=== PATIENT | male | born 1945 | race Caucasian/White ===

== ENCOUNTER 2018-02-09 13:12 | Outpatient (REF) | payer MEDICARE, MEDICAID, SELFPAY ==
[2018-02-09 22:22] LABS: Cholesterol 266 mg/dL (50-200); HDL Cholesterol 82 mg/dL (40-60); LDL CHOLESTEROL 147 mg/dL (<100); Triglyceride 147 mg/dL (30-150)
[2018-02-12 11:52] LABS: Hepatitis C Ab w Rflx HCV PCR Negative (NEGAT)
== END 2018-02-09 13:32 ==
LOC: NCHCN 13:12
PROVIDERS: PCP Internal Medicine; Visit Provider Internal Medicine
DX: I10 Essential (primary) hypertension (principal); Z11.59 Encounter for screening for other viral diseases; Z13.6 Encounter for screening for cardiovascular disorders
CPT/HCPCS: 80061; 83721; 86803

== ENCOUNTER 2018-07-08 12:25 | Outpatient (REF) | payer MEDICARE, MEDICAID, SELFPAY ==
[2018-07-08 22:43] LABS: Glucose 94 mg/dL (70-100); TSH (W/Ref FT4) 1.32 uIU/mL (0.358-3.74); Vitamin B12 344 pg/mL (193-986)
[2018-07-08 23:14] LABS: Hemoglobin A1C 5.6 % (4.5-6.2)
[2018-07-09 06:32] LABS: Vitamin D 25 Total 32.1 ng/ml (30-100)
== END 2018-07-08 12:45 ==
LOC: NCHCN 12:25
PROVIDERS: PCP Internal Medicine; Visit Provider Nurse Practitioner Family
DX: R73.9 Hyperglycemia, unspecified (principal); H05.20 Unspecified exophthalmos; G47.20 Circadian rhythm sleep disorder, unspecified type; F98.8 Other specified behavioral and emotional disorders with onset usually occurring in childhood and adolescence; Z68.27 Body mass index [BMI] 27.0-27.9, adult
CPT/HCPCS: 82306; 82947; 82607; 83036; 84443

== ENCOUNTER 2019-02-12 18:56 | Outpatient (REF) | payer MEDICARE, MEDICAID, SELFPAY ==
[2019-02-12 21:30] LABS: BUN 14 mg/dL (7-18); CREATININE 1.01 mg/dL (0.70-1.30); Calcium 9.2 mg/dL (8.5-10.1); Chloride 101 mmol/L (98-107); Glucose 85 mg/dL (74-106); Potassium 4.4 mmol/L (3.5-5.1); Sodium 140 mmol/L (136-145)
[2019-02-12 21:31] LABS: Vitamin B12 > 2000 pg/mL (193-986)
[2019-02-12 21:40] LABS: Uric Acid 3.8 mg/dL (3.5-7.2)
== END 2019-02-12 19:16 ==
LOC: NCHCN 18:56
PROVIDERS: PCP Nurse Practitioner Family; Visit Provider Family Medicine
DX: E53.8 Deficiency of other specified B group vitamins (principal); I10 Essential (primary) hypertension; M10.9 Gout, unspecified
CPT/HCPCS: 80048; 82607; 84550

== ENCOUNTER 2019-07-27 16:59 | Outpatient (REF) | payer MEDICARE, MEDICAID, SELFPAY ==
[2019-07-27 21:08] LABS: BUN 20 mg/dL (7-18); CREATININE 1.06 mg/dL (0.70-1.30); Calcium 8.9 mg/dL (8.5-10.1); Chloride 103 mmol/L (98-107); Glucose 108 mg/dL (74-106); Potassium 3.9 mmol/L (3.5-5.1); Sodium 138 mmol/L (136-145)
== END 2019-07-27 17:19 ==
LOC: NCHCN 16:59
PROVIDERS: PCP Nurse Practitioner Family; Visit Provider Nurse Practitioner Family
DX: I10 Essential (primary) hypertension (principal)
CPT/HCPCS: 80048

== ENCOUNTER 2021-02-05 16:07 | Outpatient (REF) | payer MEDICARE, MEDICAID, SELFPAY ==
[2021-02-05 18:03] LABS: ALT 60 U/L (16-63); AST 49 U/L (15-37); Albumin 3.7 g/dL (3.4-5.0); Alkaline Phosphatase 107 U/L (46-116); Anion Gap 6.9 mmol/L (3-11); BUN 16 mg/dL (7-18); Bilirubin, Total 0.7 mg/dL (0.2-1.0); CO2 29.1 mmol/L (21.0-32.0); Calcium 9.2 mg/dL (8.5-10.1); Chloride 100 mmol/L (98-107); Glucose 128 mg/dL (74-106); Potassium 4.2 mmol/L (3.5-5.1); Sodium 136 mmol/L (136-145); Total Protein 7.2 g/dL (6.4-8.2)
== END 2021-02-05 16:08 | disposition home or self-care (01) ==
LOC: NCHCN 16:07
PROVIDERS: PCP Nurse Practitioner Family; Visit Provider Nurse Practitioner Family
DX: M54.59 Other low back pain (principal)
CPT/HCPCS: 80053; 85025

== ENCOUNTER 2021-02-07 18:54 | Outpatient (REF) | payer MEDICARE, MEDICAID, SELFPAY ==
[2021-02-07 14:44] LABS: Abs Immature Grans 0.01 10^3/uL (0.0-0.06); Absolute Basophil Count 0.02 10^3/uL (0.0-0.2); Absolute Eosinophil Count 0.01 10^3/uL (0.0-0.7); Absolute Lymphocyte Count 0.66 10^3/uL (1.2-3.4); Absolute Monocyte Count 0.49 10^3/uL (0.1-0.8); Absolute Neutrophil Count 2.06 10^3/uL (1.2-6.7); Basophils % 0.6; Eosinophils % 0.3; HCT 41.8 % (40.0-50.0); HGB 13.7 g/dL (13.5-17.5); Immature Grans % 0.3; Lymphocytes % 20.3; MCH 32.2 pg (27.0-33.0); MCHC 32.8 % (32.0-36.0); MCV 98.1 fL (80-95); MPV 10.9 fL (8.0-11.0); Monocytes % 15.1; Neutrophils % 63.4; Nucleated RBC 0 %; Platelet Count 252 10^3/uL (130-400); RBC 4.26 10^6/uL (4.36-5.78); RDW 14.6 % (11.8-14.1); RDW-SD 53.1 fL; WBC 3.25 10^3/uL (4.4-10.8)
[2021-02-07 15:06] LABS: Hemoglobin A1C 5.8 % (<5.7)
[2021-02-07 15:25] LABS: ALT 55 U/L (16-63); AST 31 U/L (15-37); Albumin 3.6 g/dL (3.4-5.0); Alkaline Phosphatase 98 U/L (46-116); Anion Gap 8.3 mmol/L (3-11); BUN 17 mg/dL (7-18); Bilirubin, Total 0.6 mg/dL (0.2-1.0); CO2 27.7 mmol/L (21.0-32.0); Calcium 8.9 mg/dL (8.5-10.1); Chloride 103 mmol/L (98-107); Glucose 108 mg/dL (74-106); Potassium 4.3 mmol/L (3.5-5.1); Sodium 139 mmol/L (136-145); Total Protein 6.6 g/dL (6.4-8.2)
== END 2021-02-07 18:55 | disposition home or self-care (01) ==
LOC: NCHCN 18:54
PROVIDERS: PCP Nurse Practitioner Family; Visit Provider Nurse Practitioner Family
DX: R73.9 Hyperglycemia, unspecified (principal); R74.8 Abnormal levels of other serum enzymes; M54.59 Other low back pain
CPT/HCPCS: 80053; 83036; 85025

== ENCOUNTER 2021-04-17 15:13 | Outpatient (REF) | payer MEDICARE, MEDICAID, SELFPAY ==
[2021-04-17 16:41] LABS: Abs Immature Grans 0.01 10^3/uL (0.0-0.06); Absolute Basophil Count 0.04 10^3/uL (0.0-0.2); Absolute Eosinophil Count 0.04 10^3/uL (0.0-0.7); Absolute Lymphocyte Count 0.94 10^3/uL (1.2-3.4); Absolute Monocyte Count 0.66 10^3/uL (0.1-0.8); Absolute Neutrophil Count 3.08 10^3/uL (1.2-6.7); Basophils % 0.8; Eosinophils % 0.8; HCT 39.6 % (40.0-50.0); HGB 13.2 g/dL (13.5-17.5); Immature Grans % 0.2; Lymphocytes % 19.7; MCHC 33.3 % (32.0-36.0); MCV 95.9 fL (80-95); Monocytes % 13.8; Neutrophils % 64.7; Nucleated RBC 0 %; Platelet Count 225 10^3/uL (130-400); RBC 4.13 10^6/uL (4.36-5.78); RDW 12.6 % (11.8-14.1); RDW-SD 44.7 fL; WBC 4.77 10^3/uL (4.4-10.8)
== END 2021-04-17 15:14 | disposition home or self-care (01) ==
LOC: NCHCN 15:13
PROVIDERS: PCP Nurse Practitioner Family; Visit Provider Family Medicine
DX: R73.03 Prediabetes (principal); R68.89 Other general symptoms and signs
CPT/HCPCS: 83036; 85025

== ENCOUNTER 2022-02-05 10:36 | Outpatient (REF) | payer MEDICARE, MEDICAID, SELFPAY ==
--- OUTSIDE RECORDS SUMMARY | 2022-02-05 10:39 | XMS_ITS | Continuity of Care Document ---
:1945 Author Organization [facility] Address [address] [place] [address] Care Team Providers Name Role Phone Chichi Patricia Primary Care Physician [phone] Encounter [facility] Date(s): 11/20/21 - 11/20/[address] [address] Discharge Disposition: Home or Self Care Attending Physician: Jenny Taylor MD Admitting Physician: Jenny Taylor MD Referring Physician: Jenny Taylor MD Allergies, Adverse Reactions, Alerts Substance Reaction Severity Status statins Unknown Active Immunizations Given and Recorded Vaccine Date Status Refusal Reason SARS-CoV-2 (COVID-19) mRNA-1273 vaccine 04/17/20 Recorded SARS-CoV-2 (COVID-19) mRNA-1273 vaccine 03/20/20 Recorded Social History Social History Type Response Sex Male Patient Care team information PersonnelName: Chichi Patricia Address: Address: [facility] [address] [place] [address]-
--- OUTSIDE RECORDS SUMMARY | 2022-02-05 10:39 | XMS_ITS | CCD ---
:1945 Author Care Team Providers Name Role Phone LAKEISHA PEREZ Attending Physician Unavailable LAKEISHA PEREZ Rounding (Secondary) Physician Unavailab le Vital Signs Unknown or Not Available. Allergies Allergy Code Allergy Type Reaction Status No Known Environmental 0 No known environmental Active Allergies allergies No Known Food Allergies 0 No known food allergies Active No Known Drug Allergies 0 No known drug allergies Active Procedures Unknown or Not Available. History of Immunizations Unknown or Not Available. Problems Unknown or Not Available. Results Unknown or Not Available. Active Medications Unknown or Not Available. Medications Administered During Visit Unknown or Not Available. Encounters Encounter Diagnosis Diagnosis Code Start Date Metatarsalgia, right foot [id number] 09/12/2021 Social History Smoking Status Code Start Date End Date Unknown if ever smoked [id number] Patient Decision Aids Unknown or Not Available. Discharge Instructions You were admitted to [facility] on 09/12/2021 15:27 with a principal diagnosis of Metatarsalgia, right foot You were discharged from [facility] on 09/12/2021 00:00 Should you have any questions prior to d ischarge, please contact a member of your healthcare team. If you have left the ho spital and have any questions, please contact your primary care physician. Chief Complaint and Reason For Visit Unknown or Not Available. Function Status Unknown or Not Available. Plan of Care Unknown or Not Available. Referral/Transition of Care Unknown or Not Available.
--- OUTSIDE RECORDS SUMMARY | 2022-02-05 10:39 | XMS_ITS | Continuity of Care Document ---
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/21 Osteoarthritis of knees, bilateral (Discharge Diagnosis) - 12/07/21 Discharge Disposition: Home or Self Care Attending Physician: Fang Lee [employer], Allergies, Adverse Reactions, Alerts Substance Reaction Severity Status statins Unknown Unknown Active Functional Status 12/07/21 Recent Travel History No recent travel Other exposure to Infectious Disease None Medications allopurinol 300 mg oral tablet 1 Unknown, 0 Refill(s) Start Date: 12/07/21 Status: Orderedcolchicine 0.6 mg oral tablet 1 Unknown, 0 Refill(s) Start Date: 12/07/21 Status: Ordereddiclofenac 1% topical gel 0 Refill(s) Start Date: 12/07/21 Status: Orderedlisinopril 20 mg oral tablet 0 Refill(s) Start Date: 12/07/21 Status: OrderedoxyCODONE 5 mg oral tablet 0 Refill(s) Start Date: 12/07/21 Status: OrderedVitamin B12 1000 mcg oral tablet 0 Refill(s) Start Date: 12/07/21 Status: OrderedVitamin D3 50 mcg (2000 intl units) oral tablet, chewable 0 Refill(s) Start Date: 12/07/21 Status: Orderedzolpidem 12.5 mg oral tablet, extended release 1 Unknown, 0 Refill(s) Start Date: 12/07/21 Status: Ordered Procedures Procedure Date Related Diagnosis Body Site Status Foot reconstruction 08/2019 Complete d [facility] - Carpometacarpal joint 05/05/14 Completed arthroplasty of thumb Wrist repair 2010 Completed Right Hip replacement 1999 Comple quique Operative procedure on Right toe 1985 Completed Operative procedure on Left toe 1975 Completed Cubital tunnel release Compl eted Vital Signs Most recent to oldest [Reference Range]: 1 Peripheral Pulse Rate [60-100 bpm] 67 bpm (12/07/21 10:43 AM) Blood Pressure [90-140/60-90 mmHg] 142/78 mmHg *HI* (12/07/21 10:43 AM) Weight 76.48 kg (12/07/21 10:43 AM) Weight Measured (lbs) 168.609 lb (12/07/21 10:43 AM) Height 172.72 cm (12/07/21 10:43 AM) Height/Length Measured (inches) 68 inch (12/07/21 10:43 AM) BSA Measured 1.92 m2 (12/07/21 10:43 AM) Body Mass Index 25.64 kg/m2 (12/07/21 10:43 AM) Social History Social History Type Response Tobacco Never tobacco user Tobacco U se:. Sex Hospital Discharge Instructions Follow Up Care11/22/2021 11:49:31With:Return to this practice Address: When[facility]
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
[2022-02-05 14:40] LABS: ALT 26 U/L (16-63); AST 30 U/L (15-37); Albumin 3.1 g/dL (3.4-5.0); Alkaline Phosphatase 144 U/L (46-116); Anion Gap 6.3 mmol/L (3-11); BUN 21 mg/dL (7-18); Bilirubin, Total 0.3 mg/dL (0.2-1.0); CO2 29.7 mmol/L (21.0-32.0); CREATININE 1.1 mg/dL (0.70-1.30); Calcium 9.4 mg/dL (8.5-10.1); Chloride 101 mmol/L (98-107); Estimated GFR 68.71 (mL/min/1.73m2); Glucose 124 mg/dL (74-106); Potassium 4.5 mmol/L (3.5-5.1); Sodium 137 mmol/L (136-145); Total Protein 7.3 g/dL (6.4-8.2); Uric Acid 3.5 mg/dL (3.5-7.2)
[2022-02-05 14:43] LABS: Hemoglobin A1C 5.6 % (<5.7)
[2022-02-05 14:51] LABS: Calculated LDL 100 mg/dL (<100); Cholesterol 193 mg/dL (<200); HDL Cholesterol 79 mg/dL (40-60); Triglyceride 73 mg/dL (<150)
[2022-02-05 15:00] LABS: Vitamin D 25 Total 67.5 ng/mL (30-100)
== END 2022-02-05 10:37 | disposition home or self-care (01) ==
LOC: NCHCN 10:36
PROVIDERS: PCP Nurse Practitioner Family; Visit Provider Family Medicine
DX: I10 Essential (primary) hypertension (principal); R73.03 Prediabetes; E55.9 Vitamin D deficiency, unspecified; M10.9 Gout, unspecified; Z13.220 Encounter for screening for lipoid disorders
CPT/HCPCS: 80053; 80061; 82306; 83036; 84550

== ENCOUNTER 2022-06-25 22:56 | Outpatient (REF) | payer MEDICARE, SELFPAY ==
[2022-06-25 20:59] LABS: ALT 29 U/L (16-63); AST 23 U/L (15-37); Albumin 3.7 g/dL (3.4-5.0); Alkaline Phosphatase 79 U/L (46-116); Anion Gap 5.7 mmol/L (3-11); BUN 17 mg/dL (7-18); Bilirubin, Total 0.4 mg/dL (0.2-1.0); CO2 25.3 mmol/L (21.0-32.0); CREATININE 0.8 mg/dL (0.70-1.30); Calcium 9.4 mg/dL (8.5-10.1); Calculated LDL 156 mg/dL (<100); Chloride 105 mmol/L (98-107); Cholesterol 276 mg/dL (<200); Estimated GFR 90.02 (mL/min/1.73m2); Glucose 103 mg/dL (74-106); HDL Cholesterol 111 mg/dL (40-60); Potassium 3.8 mmol/L (3.5-5.1); Sodium 136 mmol/L (136-145); Total Protein 7.2 g/dL (6.4-8.2); Triglyceride 49 mg/dL (<150)
[2022-06-25 21:05] LABS: Hemoglobin A1C 6.2 % (<5.7)
[2022-06-25 21:19] LABS: Uric Acid 4.5 mg/dL (3.5-7.2)
== END 2022-06-25 22:57 | disposition home or self-care (01) ==
LOC: NCHCN 22:56
PROVIDERS: PCP Nurse Practitioner Family; Visit Provider Family Medicine
DX: R73.03 Prediabetes (principal); E78.5 Hyperlipidemia, unspecified; M10.9 Gout, unspecified
CPT/HCPCS: 80053; 80061; 83036; 84550

== ENCOUNTER 2022-09-19 18:44 | Outpatient (REF) | payer MEDICARE, SELFPAY ==
[2022-09-19 21:03] LABS: Hemoglobin A1C 5.7 % (<5.7)
[2022-09-19 21:08] LABS: ALT 27 U/L (16-63); AST 23 U/L (15-37); Albumin 3.6 g/dL (3.4-5.0); Alkaline Phosphatase 85 U/L (46-116); BUN 15 mg/dL (7-18); Bilirubin, Total 0.6 mg/dL (0.2-1.0); CREATININE 0.8 mg/dL (0.70-1.30); Calcium 9.3 mg/dL (8.5-10.1); Calculated LDL 164 mg/dL (<100); Chloride 102 mmol/L (98-107); Cholesterol 264 mg/dL (<200); Estimated GFR 90.02 (mL/min/1.73m2); Glucose 96 mg/dL (74-106); HDL Cholesterol 95 mg/dL (40-60); Potassium 3.7 mmol/L (3.5-5.1); Sodium 138 mmol/L (136-145); Total Protein 6.8 g/dL (6.4-8.2); Triglyceride 27 mg/dL (<150)
[2022-09-19 21:21] LABS: Uric Acid 4.4 mg/dL (3.5-7.2)
== END 2022-09-19 18:45 | disposition home or self-care (01) ==
LOC: NCHCN 18:44
PROVIDERS: PCP Nurse Practitioner Family; Visit Provider Family Medicine
DX: R73.03 Prediabetes (principal); E78.5 Hyperlipidemia, unspecified; M10.9 Gout, unspecified
CPT/HCPCS: 80053; 80061; 83036; 84550

== ENCOUNTER 2022-11-15 15:55 | Outpatient (REF) | payer MEDICARE, SELFPAY ==
[2022-11-15 20:48] LABS: HCT 33.6 % (40.0-50.0); HGB 11.2 g/dL (13.5-17.5); MCH 31.3 pg (27.0-33.0); MCHC 33.3 % (32.0-36.0); MCV 94 fL (80-95); MPV 12.6 fL (8.0-11.0); Platelet Count 215 10^3/uL (130-400); RBC 3.58 10^6/uL (4.36-5.78); RDW 13.1 % (11.8-14.1); WBC 2.99 10^3/uL (4.4-10.8)
[2022-11-15 21:08] LABS: Anion Gap 9.1 mmol/L (3-11); BUN 15 mg/dL (7-18); CO2 24.9 mmol/L (21.0-32.0); CREATININE 0.9 mg/dL (0.70-1.30); Calcium 9.7 mg/dL (8.5-10.1); Calculated LDL 110 mg/dL (<100); Chloride 100 mmol/L (98-107); Cholesterol 213 mg/dL (<200); Estimated GFR 86.88 (mL/min/1.73m2); Glucose 112 mg/dL (74-106); HDL Cholesterol 97 mg/dL (40-60); Potassium 4.3 mmol/L (3.5-5.1); Sodium 134 mmol/L (136-145); Triglyceride 31 mg/dL (<150)
[2022-11-15 22:24] LABS: Uric Acid 3.8 mg/dL (3.5-7.2)
== END 2022-11-15 15:56 | disposition home or self-care (01) ==
LOC: NCHCN 15:55
PROVIDERS: PCP Nurse Practitioner Family; Visit Provider Family Medicine
DX: E78.5 Hyperlipidemia, unspecified (principal); M10.9 Gout, unspecified; I10 Essential (primary) hypertension; R68.89 Other general symptoms and signs
CPT/HCPCS: 80048; 80061; 85027; 84550

== ENCOUNTER 2023-01-09 17:33 | Outpatient (REF) | payer MEDICARE, SELFPAY ==
[2023-01-09 21:16] LABS: Hemoglobin A1C 5.2 % (<5.7)
[2023-01-09 21:19] LABS: Iron 27 ug/dL (65-175); Total Iron Binding Capacity 274 ug/dL (250-450); Transferrin Sat 10 % (20-55)
== END 2023-01-09 17:34 | disposition home or self-care (01) ==
LOC: NCHCN 17:33
PROVIDERS: PCP Nurse Practitioner Family; Visit Provider Family Medicine
DX: D64.9 Anemia, unspecified (principal); R73.03 Prediabetes
CPT/HCPCS: 83036; 83540; 83550

== ENCOUNTER 2023-04-01 16:00 | Outpatient (REF) | payer OTHER, SELFPAY ==
[2023-04-01 21:17] LABS: HCT 34.8 % (40.0-50.0); HGB 11.5 g/dL (13.5-17.5); MCV 88 fL (80-95); MPV 12.4 fL (8.0-11.0); Platelet Count 194 10^3/uL (130-400); RBC 3.96 10^6/uL (4.36-5.78); RDW 14.4 % (11.8-14.1); RDW-SD 46.5 fL; WBC 4.67 10^3/uL (4.4-10.8)
[2023-04-01 21:44] LABS: Calculated LDL 100 mg/dL (<100); Cholesterol 216 mg/dL (<200); Folate 16.8 ng/mL (8.6-20.0); HDL Cholesterol 107 mg/dL (40-60); Triglyceride 45 mg/dL (<150)
[2023-04-01 21:48] LABS: Iron 61 ug/dL (65-175); Total Iron Binding Capacity 414 ug/dL (250-450); Transferrin Sat 15 % (20-55)
[2023-04-01 21:58] LABS: Uric Acid 4.1 mg/dL (3.5-7.2)
== END 2023-04-01 16:01 | disposition home or self-care (01) ==
LOC: NCHCN 16:00
PROVIDERS: PCP Nurse Practitioner Family; Visit Provider Family Medicine
DX: D64.9 Anemia, unspecified (principal); E78.5 Hyperlipidemia, unspecified; R73.03 Prediabetes; M10.9 Gout, unspecified
CPT/HCPCS: 80061; 85027; 82746; 83036; 83540; 83550; 84550

== ENCOUNTER 2023-06-26 16:22 | Outpatient (REF) | payer OTHER, MEDICAID, SELFPAY ==
[2023-06-26 21:34] LABS: HCT 39.8 % (40.0-50.0); HGB 13.7 g/dL (13.5-17.5); MCH 31.5 pg (27.0-33.0); MCHC 34.4 % (32.0-36.0); MCV 92 fL (80-95); MPV 12.3 fL (8.0-11.0); Platelet Count 192 10^3/uL (130-400); RBC 4.35 10^6/uL (4.36-5.78); RDW 14.6 % (11.8-14.1); RDW-SD 49.4 fL; WBC 3.86 10^3/uL (4.4-10.8)
[2023-06-26 21:47] LABS: Iron 111 ug/dL (65-175); Total Iron Binding Capacity 276 ug/dL (250-450); Transferrin Sat 40 % (20-55)
[2023-06-26 21:49] LABS: ALT 25 U/L (16-63); AST 20 U/L (15-37); Alkaline Phosphatase 100 U/L (46-116); Anion Gap 9.2 mmol/L (3-11); BUN 18 mg/dL (7-18); Bilirubin, Total 0.4 mg/dL (0.2-1.0); CO2 26.8 mmol/L (21.0-32.0); CREATININE 0.8 mg/dL (0.70-1.30); Calcium 9.1 mg/dL (8.5-10.1); Chloride 103 mmol/L (98-107); Estimated GFR 89.47 (mL/min/1.73m2); Glucose 94 mg/dL (74-106); Potassium 3.9 mmol/L (3.5-5.1); Sodium 139 mmol/L (136-145); Total Protein 7.4 g/dL (6.4-8.2); Uric Acid 5.4 mg/dL (3.5-7.2)
[2023-06-26 22:08] LABS: Hemoglobin A1C 5.9 % (<5.7)
[2023-06-26 22:17] LABS: Calculated LDL 112 mg/dL (<100); Cholesterol 224 mg/dL (<200); Ferritin 69 ng/mL (26-388); HDL Cholesterol 103 mg/dL (40-60); Triglyceride 49 mg/dL (<150)
== END 2023-06-26 16:23 | disposition home or self-care (01) ==
LOC: NCHCN 16:22
PROVIDERS: PCP Nurse Practitioner Family; Visit Provider Family Medicine
DX: E78.5 Hyperlipidemia, unspecified (principal); D50.9 Iron deficiency anemia, unspecified; R73.03 Prediabetes
CPT/HCPCS: 80053; 80061; 85027; 82728; 83036; 83540; 83550; 84550

== ENCOUNTER 2023-11-14 15:47 | Outpatient (REF) | payer OTHER, MEDICAID, SELFPAY ==
[2023-11-14 21:27] LABS: HCT 35.3 % (40.0-50.0); HGB 11.8 g/dL (13.5-17.5); MCH 32.2 pg (27.0-33.0); MCHC 33.4 % (32.0-36.0); MCV 96 fL (80-95); MPV 11.2 fL (8.0-11.0); Platelet Count 181 10^3/uL (130-400); RBC 3.67 10^6/uL (4.36-5.78); RDW 13.4 % (11.8-14.1); RDW-SD 47.7 fL; WBC 3.84 10^3/uL (4.4-10.8)
[2023-11-14 21:52] LABS: ALT 22 U/L (16-63); AST 24 U/L (15-37); Albumin 3.5 g/dL (3.4-5.0); Alkaline Phosphatase 99 U/L (46-116); BUN 21 mg/dL (7-18); Bilirubin, Total 0.35 mg/dL (0.2-1.0); CREATININE 0.8 mg/dL (0.70-1.30); Calcium 9.2 mg/dL (8.5-10.1); Calculated LDL 108 mg/dL (<100); Chloride 106 mmol/L (98-107); Cholesterol 221 mg/dL (<200); Estimated GFR 89.47 (mL/min/1.73m2); Glucose 115 mg/dL (74-106); HDL Cholesterol 108 mg/dL (40-60); Potassium 3.8 mmol/L (3.5-5.1); Sodium 141 mmol/L (136-145); Triglyceride 26 mg/dL (<150)
[2023-11-14 22:01] LABS: Uric Acid 5.7 mg/dL (3.5-7.2)
== END 2023-11-14 15:48 | disposition home or self-care (01) ==
LOC: NCHCN 15:47
PROVIDERS: PCP Nurse Practitioner Family; Visit Provider Family Medicine
DX: E78.5 Hyperlipidemia, unspecified (principal)
CPT/HCPCS: 80053; 80061; 85027; 84550

== ENCOUNTER 2024-04-07 11:42 | Outpatient (REF) | payer MEDICARE, MEDICAID, SELFPAY ==
[2024-04-14 11:27] LABS: Testosterone, Free 10.7 ng/dL (2.88-10.5); Testosterone, Total 917 ng/dL (240-950)
== END 2024-04-07 11:43 | disposition home or self-care (01) ==
LOC: NCHCN 11:42
PROVIDERS: PCP Nurse Practitioner Family; Visit Provider Physician Assistant
DX: F52.21 Male erectile disorder (principal)
CPT/HCPCS: 84402; 84403

== ENCOUNTER 2024-04-16 15:30 | Outpatient (REF) | payer MEDICARE, MEDICAID, SELFPAY ==
[2024-04-16 21:35] LABS: HCT 38.1 % (40.0-50.0); HGB 12.8 g/dL (13.5-17.5); MCH 31.8 pg (27.0-33.0); MCHC 33.6 % (32.0-36.0); MCV 95 fL (80-95); Platelet Count 168 10^3/uL (130-400); RBC 4.03 10^6/uL (4.36-5.78); RDW 13.1 % (11.8-14.1); RDW-SD 45.8 fL; WBC 5.56 10^3/uL (4.4-10.8)
[2024-04-16 22:04] LABS: ALT 24 U/L (16-63); AST 20 U/L (15-37); Albumin 3.9 g/dL (3.4-5.0); Alkaline Phosphatase 99 U/L (46-116); BUN 15 mg/dL (7-18); Bilirubin, Total 0.5 mg/dL (0.2-1.0); CREATININE 0.9 mg/dL (0.70-1.30); Calcium 9.4 mg/dL (8.5-10.1); Calculated LDL 122 mg/dL (<100); Chloride 104 mmol/L (98-107); Cholesterol 241 mg/dL (<200); Estimated GFR 86.34 (mL/min/1.73m2); Ferritin 80 ng/mL (26-388); Glucose 98 mg/dL (74-106); HDL Cholesterol 108 mg/dL (>or=40); Potassium 4.2 mmol/L (3.5-5.1); Sodium 141 mmol/L (136-145); Triglyceride 56 mg/dL (<150)
[2024-04-16 22:08] LABS: Hemoglobin A1C 5.7 % (<5.7)
[2024-04-16 22:17] LABS: C-Reactive Protein < 0.50 mg/dL (<or=0.5)
[2024-04-17 22:05] LABS: Rheumatoid Factor <8.6 IU/mL (<12.0)
[2024-04-19 12:08] LABS: ANA Interpretation Negative (Negative)
== END 2024-04-16 15:31 | disposition home or self-care (01) ==
LOC: NCHCN 15:30
PROVIDERS: PCP Nurse Practitioner Family; Visit Provider Family Medicine
DX: E78.5 Hyperlipidemia, unspecified (principal); R73.03 Prediabetes; D50.9 Iron deficiency anemia, unspecified
CPT/HCPCS: 80053; 80061; 85027; 82728; 83036; 84550; 86038; 86140; 86431

== ENCOUNTER 2024-05-07 15:55 | Outpatient (REF) | payer MEDICARE, MEDICAID, SELFPAY ==
[2024-05-10 09:20] LABS: Cyclic Citrullinated Peptide <2.5 U/mL (<5.0)
== END 2024-05-07 15:56 | disposition home or self-care (01) ==
LOC: NCHCN 15:55
PROVIDERS: PCP Nurse Practitioner Family; Visit Provider Family Medicine
DX: M19.19 Post-traumatic osteoarthritis, other specified site (principal)
CPT/HCPCS: 86200

== ENCOUNTER 2024-07-09 16:50 | Outpatient (REF) | payer MEDICARE, MEDICAID, SELFPAY ==
[2024-07-09 21:57] LABS: HCT 37.3 % (40.0-50.0); HGB 12.7 g/dL (13.5-17.5); MCH 31.8 pg (27.0-33.0); MCV 93 fL (80-95); RDW 12.8 % (11.8-14.1); RDW-SD 44.3 fL; WBC 3.55 10^3/uL (4.4-10.8)
[2024-07-09 22:12] LABS: Hemoglobin A1C 5.7 % (<5.7)
[2024-07-09 22:15] LABS: ALT 23 U/L (16-63); AST 16 U/L (15-37); Albumin 3.8 g/dL (3.4-5.0); Alkaline Phosphatase 79 U/L (46-116); Anion Gap 4.8 mmol/L (3-11); BUN 15 mg/dL (7-18); Bilirubin, Total 0.5 mg/dL (0.2-1.0); CO2 32.2 mmol/L (21.0-32.0); CREATININE 0.7 mg/dL (0.70-1.30); Calcium 9.1 mg/dL (8.5-10.1); Calculated LDL 120 mg/dL (<100); Chloride 104 mmol/L (98-107); Cholesterol 219 mg/dL (<200); Estimated GFR 92.57 (mL/min/1.73m2); Glucose 104 mg/dL (74-106); HDL Cholesterol 87 mg/dL (>or=40); Sodium 141 mmol/L (136-145); Total Protein 6.6 g/dL (6.4-8.2); Triglyceride 62 mg/dL (<150)
[2024-07-09 22:41] LABS: Uric Acid 4.8 mg/dL (3.5-7.2)
== END 2024-07-09 16:51 | disposition home or self-care (01) ==
LOC: NCHCN 16:50
PROVIDERS: PCP Nurse Practitioner Family; Visit Provider Family Medicine
DX: E78.5 Hyperlipidemia, unspecified (principal); R73.03 Prediabetes; M10.9 Gout, unspecified; D64.9 Anemia, unspecified
CPT/HCPCS: 80053; 80061; 85027; 83036; 84550

== ENCOUNTER 2024-09-30 18:13 | Outpatient (REF) | payer MEDICARE, MEDICAID, SELFPAY ==
[2024-09-30 20:55] LABS: HCT 35.6 % (40.0-50.0); HGB 12.1 g/dL (13.5-17.5); MCH 31.7 pg (27.0-33.0); MCHC 34.0 % (32.0-36.0); MCV 93 fL (80-95); MPV 11.9 fL (8.0-11.0); Platelet Count 160 10^3/uL (130-400); RBC 3.82 10^6/uL (4.36-5.78); RDW 13.3 % (11.8-14.1); RDW-SD 45.2 fL; WBC 4.06 10^3/uL (4.4-10.8)
[2024-09-30 21:10] LABS: Hemoglobin A1C 5.5 % (<5.7)
[2024-09-30 21:32] LABS: ALT 25 U/L (16-63); AST 23 U/L (15-37); Albumin 3.6 g/dL (3.4-5.0); Alkaline Phosphatase 86 U/L (46-116); Anion Gap 10.2 mmol/L (3-11); BUN 14 mg/dL (7-18); Bilirubin, Total 0.5 mg/dL (0.2-1.0); CO2 25.8 mmol/L (21.0-32.0); Calcium 8.8 mg/dL (8.5-10.1); Calculated LDL 112 mg/dL (<100); Chloride 105 mmol/L (98-107); Cholesterol 205 mg/dL (<200); Estimated GFR 88.91 (mL/min/1.73m2); Glucose 94 mg/dL (74-106); HDL Cholesterol 83 mg/dL (>or=40); Potassium 3.9 mmol/L (3.5-5.1); Sodium 141 mmol/L (136-145); Total Protein 6.7 g/dL (6.4-8.2); Triglyceride 54 mg/dL (<150)
[2024-09-30 21:50] LABS: Uric Acid 5.7 mg/dL (3.5-7.2)
== END 2024-09-30 18:14 | disposition home or self-care (01) ==
LOC: NCHCN 18:13
PROVIDERS: PCP Nurse Practitioner Family; Visit Provider Family Medicine
DX: E78.5 Hyperlipidemia, unspecified (principal); R73.03 Prediabetes; M10.9 Gout, unspecified; D64.9 Anemia, unspecified
CPT/HCPCS: 80053; 80061; 85027; 83036; 84550

== ENCOUNTER 2024-11-25 13:02 | Outpatient (REF) | payer MEDICARE, MEDICAID, SELFPAY ==
[2024-11-25 20:58] LABS: Abs Immature Grans 0.01 10^3/uL (0.0-0.06); HCT 38.4 % (40.0-50.0); HGB 13.0 g/dL (13.5-17.5); Immature Grans % 0.2 %; MCH 32.3 pg (27.0-33.0); MCHC 33.9 % (32.0-36.0); MCV 95 fL (80-95); MPV 11.3 fL (8.0-11.0); Platelet Count 178 10^3/uL (130-400); RBC 4.03 10^6/uL (4.36-5.78); RDW 13.1 % (11.8-14.1); RDW-SD 45.6 fL; WBC 4.60 10^3/uL (4.4-10.8)
[2024-11-25 21:16] LABS: Iron 126 ug/dL (65-175); Total Iron Binding Capacity 296 ug/dL (250-450); Transferrin Sat 43 % (20-55)
[2024-11-25 21:28] LABS: Ferritin 81 ng/mL (26-388)
== END 2024-11-25 13:03 | disposition home or self-care (01) ==
LOC: NCHCN 13:02
PROVIDERS: PCP Nurse Practitioner Family; Visit Provider Family Medicine
DX: D64.9 Anemia, unspecified (principal)
CPT/HCPCS: 82728; 83540; 83550; 85025; 85045